=== PATIENT | female | born 2005 | race Caucasian/White ===

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

== ENCOUNTER → 2024-04-08 | Outpatient (CLI) | payer OTHER ==
[~2024-04-08] MED LIST changes: +FLUO-365 PO; -FLUO20CA22 PO
[2024-04-08 12:51] LABS: FOLLICLE STIMULATING HORMONE 2.7 mIU/ML; LUTEINIZING HORMONE 2.6 mIU/ML
[2024-04-08 12:52] LABS: PROLACTIN 13.25 NG/ML
[2024-04-11 09:28] LABS: INSULIN TOTAL2 105.2 uIU/mL (<=18.4)
== END ==
LOC: M LAB 10:27
PROVIDERS: ATTEND Nurse Practitioner Family
DX: R68.82 Decreased libido (principal); N76.1 Subacute and chronic vaginitis

== ENCOUNTER 2024-09-15 14:57 | Emergency (ER) | payer OTHER ==
[~2024-09-15] VITALS: Ht 160 cm; Wt 76.0 kg
[2024-09-15] MEDS ORDERED: MOTR200T44 PO (15:09)
[2024-09-15] MEDS: ACETAMINOPHEN 325 MG TAB PO ONE (18:33)
[2024-09-15 18:58] LABS: KETONE, URINE AUTO RFX TRACE mg/dL (NEGATIVE); LEUKOCYTE ESTERASE UR AUTO RFX NEGATIVE (NEGATIVE); MUCUS, URINE RFX LARGE (NEGATIVE); NITRITE, URINE AUTO RFX NEGATIVE (NEGATIVE); RBC, URINE AUTO RFX 92 /HPF (0-3); SQUAM EPITHELIAL CELL UR AURFX 3 /HPF (0-6); WBC, URINE AUTO RFX 14 /HPF (0-3)
[2024-09-15 20:25] LABS: Trichomonas vaginalis (AMP) NOT DETECTED (NEGATIVE)
[2024-09-15 20:33] VITALS: BP 121/78; TEMP 97.9; O2SAT 99
[2024-09-15 20:48] LABS: GC DNA AMPLIFICATION NEGATIVE (NEGATIVE)
== END 2024-09-15 21:10 | disposition home or self-care (01) ==
LOC: M ED 14:57 → EDBD 14:57 → M ED 21:10
DX: N94.6 Dysmenorrhea, unspecified (principal); Z79.1 Long term (current) use of non-steroidal anti-inflammatories (NSAID)